=== PATIENT | male | born 1950 | race Caucasian/White ===

== ENCOUNTER 2019-03-14 19:09 | Emergency (ER) | payer SELFPAY ==
[~2019-03-14] VITALS: Ht 162.6 cm; Wt 65.8 kg
[2019-03-14] MEDS ORDERED: METF-440 PO (19:50)
--- NOTE | 2019-03-14 20:12 | NUR ---
Dr. Menendez at bedside for MSE.
[2019-03-14] MEDS ORDERED: ONDANSETRON ODT 4 MG TAB.RAPDIS SL ONE (20:15)
[2019-03-14] MEDS ORDERED: ACETAMINOPHEN ES 500 MG TABLET PO ONE (20:15)
[2019-03-14] MEDS ORDERED: ONDANSETRON ODT 4 MG TAB.RAPDIS ONE (20:21)
[2019-03-14] MEDS ORDERED: ACETAMINOPHEN ES 500 MG TABLET ONE (20:21)
--- NOTE | 2019-03-14 20:30 | NUR ---
Pt our of ER for CT.
--- NOTE | 2019-03-14 20:47 | NUR ---
Pt back to ER from CT.
--- NOTE | 2019-03-14 21:55 | NUR ---
Patient discharged to home in stable conditon. Written and verbal after care instructions given. Patient verbalizes understanding of instructions. Pt out of ER with steady gait, no acute signs of distress, VSS, all belongings taken.
[2019-03-14 22:24] VITALS: BP 148/88
== END 2019-03-14 22:24 | disposition home or self-care (01) ==
LOC: ER 19:11
DX: S00.83XA Contusion of other part of head, initial encounter (principal); E11.9 Type 2 diabetes mellitus without complications; E78.5 Hyperlipidemia, unspecified; Z79.84 Long term (current) use of oral hypoglycemic drugs; W22.8XXA Striking against or struck by other objects, initial encounter; Y93.89 Activity, other specified; Y92.89 Other specified places as the place of occurrence of the external cause; Y99.8 Other external cause status
CPT/HCPCS: 70450; A4663; A9150; Q0162